=== PATIENT | female | born 1980 | race Caucasian/White ===

== ENCOUNTER 2020-07-11 12:04 | Emergency (ER) | payer MEDICAID ==
[~2020-07-11] VITALS: Ht 172.7 cm; Wt 71.0 kg
[2020-07-11] MEDS ORDERED: IBUPROFEN 600MG TABLET PO ONE (12:45)
[2020-07-11 13:38] VITALS: BP 126/91
== END 2020-07-11 13:40 | disposition home or self-care (01) ==
LOC: ER 12:04
DX: H60.91 Unspecified otitis externa, right ear (principal); Z98.890 Other specified postprocedural states
CPT/HCPCS: 99283